=== PATIENT | female | born 1995 | race Caucasian/White ===

== ENCOUNTER 2017-07-23 18:40 | Emergency (ER) | payer MEDICAID ==
[~2017-07-23] VITALS: Ht 157.5 cm; Wt 51.0 kg
[2017-07-23 18:41] VITALS: BP 112/82; PULSE 90; RESP 16; TEMP 97.9; O2SAT 98
--- NOTE | 2017-07-23 19:01 | PD ---
HPI Chief Complaint: Complaint Time Seen by Provider: 18:54 Travel History International Travel<30 days: No Contact w/Intl Traveler<30days: No Traveled to known affect area: No History of Present Illness HPI 21-year-old female here for evaluation of dysuria, right flank pain, possible kidney infection. Patient reports dysuria and increased urinary frequency for the last 2 days. Today she began to notice some right flank discomfort. She reports history of 1 kidney infection in the past, and this feels similar. She has been taking Azo with only mild relief of symptoms. No hematuria. No fevers or chills. No nausea or vomiting. The patient is also experiencing some suprapubic discomfort. No vaginal discharge. No history of abdominal surgeries. No history of IVDU. No urinary or bowel incontinence or retention. PFSH Past Medical History ?: Not LMP: 07/29 Social History Tobacco Use: Yes Allergies-Medications (Allergen,Severity, Reaction): Coded Allergies: No Known Allergies (Verified Allergy, Unknown, 07/23/17) Reported Meds & Prescriptions Reported Meds & Active Scripts Active Bactrim DS (Sulfamethoxazole-Trimethoprim) 800-160 Mg Tab 1 Tab PO BID 14 Days Review of Systems Except as stated in HPI: all other systems reviewed are Neg Physical Exam Narrative GENERAL: Well-developed, well-nourished, comfortable, no apparent distress. SKIN: Focused skin assessment warm/dry. No rash. HEAD: Atraumatic. Normocephalic. EYES: Pupils equal and round. No scleral icterus. No injection or drainage. ENT: Mucous membranes pink and moist. NECK: Trachea midline. No JVD. CARDIOVASCULAR: Regular rate and rhythm. No murmur appreciated. RESPIRATORY: No accessory muscle use. Clear to auscultation. Breath sounds equal bilaterally. GASTROINTESTINAL: Abdomen soft, nondistended. Mild suprapubic tenderness without peritoneal signs. Rest of abdomen is soft and nontender. Normal bowel sounds. MUSCULOSKELETAL: No obvious deformities. No clubbing. No cyanosis. No edema. No midline vertebral step-off or tenderness. Moderate right CVA tenderness. Mild left CVA tenderness. NEUROLOGICAL: Awake and alert. No obvious cranial nerve deficits. Motor grossly within normal limits. Normal speech. PSYCHIATRIC: Appropriate mood and affect; insight and judgment normal. Data Data Last Documented VS Vital Signs Date Time Temp Pulse Resp B/P (MAP) Pulse Ox O2 Delivery O2 Flow Rate FiO2 07/23/17 19:56 07/23/17 18:53 17 07/23/17 18:41 97.9 90 98 Orders Orders Urinalysis - C+S If Indicated (07/23/17 18:57) Ed Urine Pregnancytest Poc (07/23/17 18:57) Urine Culture (07/23/17 19:05) Sulfamet-Trimeth Ds 800-160 Mg (Bactrim (07/23/17 20:00) Ed Discharge Order (07/23/17 19:55) Labs Laboratory Tests Test 07/23/17 19:05 Urine Color LIGHT-ORANGE Urine Turbidity CLEAR Urine pH 6.0 Urine Specific [place] 1.002 Urine Protein NEG mg/dL Urine Glucose (UA) NEG mg/dL Urine Ketones NEG mg/dL Urine Occult Blood SMALL Urine Nitrite NEG Urine Bilirubin NEG Urine Urobilinogen LESS THAN 2.0 MG/DL Urine Leukocyte Esterase MOD Urine RBC 1 /hpf Urine WBC 23 /hpf Urine Squamous Epithelial Cells <1 /hpf Urine Bacteria RARE /hpf Microscopic Urinalysis Comment CULTURE INDICATED MDM Medical Decision Making Medical Screen Exam Complete: Yes Emergency Medical Condition: Yes Differential Diagnosis UTI, pyelonephritis, nephrolithiasis, ureterolithiasis, appendicitis/acute intra -abdominal/surgical process less likely Narrative Course Vital signs show heart rate 90, blood pressure 112/82, pulse ox 98% on room air , oral temp of 97.9F. Urine is negative. UA: Turner-colored, small occult blood, moderate leukocyte esterase, 23 wbc's, less than 1 squamous epithelial cell, rare bacteria. Culture indicated. Patient was made aware of UA findings. She is resting comfortably. Her abdominal exam shows slight suprapubic tenderness without peritoneal signs. There is no McBurney's point tenderness. I do not believe that there is an acute intra-abdominal/surgical process to warrant imaging at this time. She is likely experiencing a UTI with some pyelonephritis. Plan at this time is to start her on Bactrim and have her follow-up with a primary care physician this week. She was informed on when to return to the emergency department. She verbalizes understanding and agreement with plan. Diagnosis Primary Impression: Pyelonephritis Referrals: [facility] 3 days Primary Care Physician 3 days Additional Instructions: Follow-up with a primary care physician this week. Take antibiotic as prescribed. Return to the emergency department for worsening symptoms or any other concerns. Scripts Sulfamethoxazole-Trimethoprim (Bactrim DS) 800-160 Mg Tab 1 TAB PO BID for Infection for 14 Days, #28 TAB 0 Refills Prov: Kaiden Montemayor MD 07/23/17 Disposition: 01 DISCHARGE HOME Condition: Stable Kaiden Montemayor MD Jul 23, 2017 19:01
[2017-07-23 19:42] LABS: BACTERIA, URINE RARE /hpf; BLOOD, URINE SMALL (NEG); COMMENT (UR) CULTURE INDICATED; CULTURE IF INDICATED CULTURE INDICATED; GLUCOSE,URINE NEG (NEG); KETONE, URINE NEG (NEG); NITRITE,URINE NEG (NEG); SQUAMOUS EPITHELIAL CELL URINE <1 /hpf (0-5)
[2017-07-23 19:46] LABS: URINE COLOR LIGHT-ORANGE (YELLW/STRAW)
[2017-07-23] MEDS ORDERED: BACT800T5 PO (19:55)
[2017-07-23] MEDS ORDERED: SULFAMETHOXAZOLE-TRIMETHOPRIM DS 800-160 MG TAB PO ONE (20:00)
== END 2017-07-23 20:04 | disposition home or self-care (01) ==
LOC: NEPD 18:40
DX: N12 Tubulo-interstitial nephritis, not specified as acute or chronic (principal); B96.20 Unspecified Escherichia coli [E. coli] as the cause of diseases classified elsewhere
CPT/HCPCS: 81001; 84703; 87077; 87086; 87186; 99283